=== PATIENT | male | born 1950 | race Hispanic/Latino ===

== ENCOUNTER → 2019-04-14 | Day surgery (SDC) | payer MEDICARE ==
[~2019-04-14] MED LIST: AMIODARONE HCL200 MG PO; AMLODIPINE BESYL5 MG PO; ASPIR 8181 MG PO; ATORVASTATIN CA20 MG PO; FENTANYL CITRATE/PF 100MCG/2 ML INJ ONE; HYDRALAZINE HCL25 MG PO; HYDROCHLOROTHIA25 MG PO; LISINOPRIL10 MG PO; METFORMIN HCL500 M2 PO; METOPROLOL SUCC50 MG PO; MIDAZOLAM HCL 2 MG/2 ML VIAL ONE; OR PHACO EYE KIT ONE; PLAVIX75 MG PO; PREOP PHACO EYE KIT ONE
--- OUTSIDE RECORDS SUMMARY | 2019-04-14 10:59 | XMS REPORT ---
[facility] Address Unknown Phone Unavailable Care Team Providers [employer] Business [employer] Analyst Name Role Phone Unavailable Unavailable Problems This patient has no known problems. Allergies, Adverse Reactions, Alerts This patient has no known allergies or adverse reactions. Medications This patient has no known medications. Encounters Start Date/Time End Date/Time Encounter Type Admission Type Attending Clinicians [facility] [place] Facility Care Department Encounter ID 2018-06-16 19:11:00 2018-06-16 19:11:00 Outpatient [id number] 2016-11-09 09:52:27 2016-11-09 09:52:27 Outpatient [facility] [id number] 2016-09-21 14:43:08 2016-09-21 14:43:08 Outpatient [facility] [id number] 2016-07-31 13:36:32 2016-07-31 13:36:32 Outpatient [facility] [id number] Results Test Description Test Time Test Comments Text Results Atomic Results Result Comments US Lower Ext Venous Duplex Bilateral 2017-11-15 22:41:59 Patient: JIMMIE ORLANDO Date/Time11/15/2017 22:35 CDTReason for ExamExtremity painReportExam: Venous duplex bilateral lower extremity ultrasoundLocation: [id number]: Extremity painComparison: None.DISCUSSION: James-scale, color Doppler, and spectral waveform ultrasound analysis of the bilateral lower extremities was performed.Right lower extremity: The common femoral vein, proximal, mid and distal superficial femoral vein, and popliteal vein are compressible and show normal response to augmentation. The major veins at the calf show normal flow.Left lower extremity: The common femoral vein, proximal, mid and distal superficial femoral vein, and popliteal vein are compressible and show normal response to augmentation. The major veins at the calf show normal flow.IMPRESSION: No evidence for deep venous thrombosis in the bilateral lower extremities. Final Dictated by: MD De La Rosa Alfred EDictated DT/TM: 11/15/2017 10:41 pmSigned by: MD De La Rosa Alfred ESigned (Electronic Signature): 11/15/2017 10:41 pm XR Chest 2 Views 2017-11-15 17:51:52 Patient: JIMMIE ORLANDO Date/Time11/15/2017 17:30 CDTReason for ExamCHF (Congestive Heart Failure), knownReportEXAM: Chest x-ray, 2 viewsLOCATION: [id number]: Chest CT from earlier today, chest radiograph 11/13/2017INDICATION: CHF (Congestive Heart Failure), knownDISCUSSION:AP and lateral chest radiographs were submitted for interpretation.There is central pulmonary vascular congestion with mild bibasilar opacity.The posterior costophrenic angles are blunted.The lungs are otherwise grossly clear.No pneumothorax is seen.The cardiac silhouette is enlarged, but stable.No acute osseous abnormalities are identified.IMPRESSION:1. Central pulmonary vascular congestion with mild bibasilar opacity.2. Small bilateral pleural effusions.3. Stable, enlarged cardiac silhouette. Final Dictated by: MD De La Rosa Alfred EDictated DT/TM: 11/15/2017 5:49 pmSigned by: MD De La Rosa Alfred ESigned (Electronic Signature): 11/15/2017 5:[address] Angio Chest 2017-11-15 17:49:37 Patient: JIMMIE ORLANDO Date/Time11/15/2017 17:25 CDTReason for ExamDyspneaReportCT Angio ChestLOCATION CODE: [id number]: DyspneaCOMPARISON: Chest radiograph 11/13/2017TECHNIQUE: CTA of the chest was performed with intravenous contrast. PE protocol was performed. Coronal, sagittal, and oblique reformatted images were created. One or more of the following dose reduction techniques were used: Automated exposure control, adjustment of the mA and/or kV according to patient size, and/or utilization of iterative reconstruction technique.DISCUSSION:Lungs and airways:The central airways are clear.Bilateral dependent atelectasis and/or scarring is present.There are associated small bilateral pleural effusions.An approximately 1.3 cm groundglass nodule is seen at the left lung apex.A 3 mm noncalcified nodule is seen in the left lower lobe.A few small calcified granulomas are seen in the right lung.The pulmonary arteries are well opacified. There are no pulmonary artery filling defects to suggest pulmonary embolism.Heart and mediastinum:The heart is mildly enlarged.Mild mediastinal lipomatosis is present.No pericardial effusion is seen.Calcified coronary artery and aortic atherosclerosis is seen.No enlarged mediastinal or hilar lymphadenopathy is seen.A small calcified subcarinal lymph node is compatible with remote granulomatous disease.Upper abdomen: Mild perinephric fat stranding can be normal for age. Mildly hypodense liver may suggest fatty infiltrationBones/soft tissues: There are mild to moderate degenerative changes throughout the spine.IMPRESSION:1. There are no pulmonary artery filling defects to suggest pulmonary embolism.2. Bilateral dependent atelectasis and/or scarring with small bilateral pleural effusions.3. Mild car diomegaly with mediastinal lipomatosis.4. Indeterminate 1.3 cm groundglass nodule in the left lung apex. There is also a 3 mm noncalcified nodule in the left lower lobe. Follow-up chest CT in 6-12 months is recommended.5. Otherwise, no acute abnormalities in the chest Final Dictated by: MD De La Rosa Alfred EDictated DT/TM: 11/15/2017 5:40 pmSigned by: MD De La Rosa Alfred ESigned (Electronic Signature): 11/15/2017 5:49 pm XR Chest 1 View Frontal 2017-11-13 15:24:03 Patient: JIMMIE PEREZ Date/Time11/13/2017 14:35 CDTReason for ExamChest painReportCHEST 1 VIEWCLINICAL INFORMATION: Chest painCOMPARISON: None availableFINDINGS:The lungs are well-expanded and clear. No airspace consolidation is seen. No pneumothorax or pleural effusion is present. The cardiac silhouette is normal in size. The bones are grossly intact.IMPRESSION:No acute cardiopulmonary finding.LOCATION: R16 Final Dictated by: MD Joshua, Jose FDictleanne DT/TM: 11/13/2017 3:21 pmSigned by: MD Joshua, Jose FSigned (Electronic Signature): 11/13/2017 3:24 pm
[2019-04-14 14:00] VITALS: BP 131/66
== END | disposition home or self-care (01) ==
LOC: OR 10:52
PROVIDERS: ATTEND Ophthalmology
DX: H25.12 Age-related nuclear cataract, left eye (principal); I25.10 Atherosclerotic heart disease of native coronary artery without angina pectoris; I25.2 Old myocardial infarction; I10 Essential (primary) hypertension; G47.33 Obstructive sleep apnea (adult) (pediatric); E11.9 Type 2 diabetes mellitus without complications; K21.9 Gastro-esophageal reflux disease without esophagitis; E78.5 Hyperlipidemia, unspecified; Z01.810 Encounter for preprocedural cardiovascular examination; Z79.02 Long term (current) use of antithrombotics/antiplatelets; Z79.82 Long term (current) use of aspirin; Z79.84 Long term (current) use of oral hypoglycemic drugs; Z95.810 Presence of automatic (implantable) cardiac defibrillator; Z95.5 Presence of coronary angioplasty implant and graft
CPT/HCPCS: 36415; 66984; 82948; 93005; J2250; J3010

== ENCOUNTER → 2019-04-28 | Day surgery (SDC) | payer MEDICARE ==
[2019-04-23 13:18] LABS: BASOPHILS # (AUTO) 0.1 (0.0-0.1); EOSINOPHILS # (AUTO) 0.2 (0.0-0.4); EOSINOPHILS % 2.3 % (0.0-6.0); HEMATOCRIT 37.8 % (38.2-49.6); LYMPHOCYTES # (AUTO) 2.4 (1.0-3.2); LYMPHOCYTES % 28.8 % (18.0-39.1); MEAN CORPUSCULAR HEMOGLOBIN 33.2 pg (28-32); MEAN CORPUSCULAR HGB CONC 34.4 g/dL (31-35); MEAN CORPUSCULAR VOLUME 96.7 fL (81-99); MONOCYTES # (AUTO) 0.9 (0.2-0.8); MONOCYTES % 11.3 % (4.4-11.3); NEUTROPHILS # (AUTO) 4.7 (2.1-6.9); NEUTROPHILS % 56.4 % (38.7-80.0); PLATELET COUNT 245 x10e3/uL (140-360); RED BLOOD COUNT 3.91 x10e6/uL (4.3-5.7); RED CELL DISTRIBUTION WIDTH 12.8 % (11.7-14.4)
[~2019-04-28] MED LIST changes: +BALANCED SALT SOLN (OPTH) 15 ML BTL IO ONE
[2019-04-28 13:00] VITALS: BP 124/58
== END | disposition home or self-care (01) ==
LOC: OR 10:17
PROVIDERS: ATTEND Ophthalmology
DX: H25.11 Age-related nuclear cataract, right eye (principal); Z01.812 Encounter for preprocedural laboratory examination; E11.9 Type 2 diabetes mellitus without complications; Z79.84 Long term (current) use of oral hypoglycemic drugs; I11.9 Hypertensive heart disease without heart failure; D64.9 Anemia, unspecified; I25.10 Atherosclerotic heart disease of native coronary artery without angina pectoris; K21.9 Gastro-esophageal reflux disease without esophagitis; E55.9 Vitamin D deficiency, unspecified; Z95.810 Presence of automatic (implantable) cardiac defibrillator; G47.33 Obstructive sleep apnea (adult) (pediatric)
CPT/HCPCS: 36415 ×2; 66984; 82948; 85025; J2250; J3010

== ENCOUNTER → 2019-08-20 | Day surgery (SDC) | payer MEDICARE ==
[2019-08-17 11:51] LABS: BASOPHILS # (AUTO) 0.1 (0.0-0.1); EOSINOPHILS # (AUTO) 0.2 (0.0-0.4); EOSINOPHILS % 2.6 % (0.0-6.0); HEMATOCRIT 36.9 % (38.2-49.6); HEMOGLOBIN 12.6 g/dL (14.0-18.0); LYMPHOCYTES # (AUTO) 3.4 (1.0-3.2); MEAN CORPUSCULAR HEMOGLOBIN 32.6 pg (28-32); MEAN CORPUSCULAR HGB CONC 34.1 g/dL (31-35); MEAN CORPUSCULAR VOLUME 95.6 fL (81-99); MONOCYTES % 11.5 % (4.4-11.3); NEUTROPHILS # (AUTO) 4.1 (2.1-6.9); PLATELET COUNT 219 x10e3/uL (140-360); RED BLOOD COUNT 3.86 x10e6/uL (4.3-5.7); RED CELL DISTRIBUTION WIDTH 12.4 % (11.7-14.4)
[~2019-08-20] MED LIST changes: +ASPIRIN81 MG PO; +ATORVASTATIN CA10 MG PO; -BALANCED SALT SOLN (OPTH) 15 ML BTL IO ONE; +CLOPIDOGREL75 MG PO; +HYDROCHLOROTHIA50 MG PO; +LIDOCAINE HCL 2% LOCAL INJ 5 ML SDV VIAL INJ ONE; +METFORMIN HCL500 MG PO; -OR PHACO EYE KIT ONE; -PREOP PHACO EYE KIT ONE; +PROPOFOL IV EMULSION 10 MG/ML 20 ML VIAL ONE
[2019-08-20 09:05] VITALS: BP 145/82
== END | disposition home or self-care (01) ==
LOC: OR 06:00
PROVIDERS: ATTEND Internal Medicine Gastroenterology
DX: K29.70 Gastritis, unspecified, without bleeding (principal); K63.5 Polyp of colon; K62.1 Rectal polyp; K21.9 Gastro-esophageal reflux disease without esophagitis; K44.9 Diaphragmatic hernia without obstruction or gangrene; K57.30 Diverticulosis of large intestine without perforation or abscess without bleeding; K64.8 Other hemorrhoids; C61 Malignant neoplasm of prostate; Z71.3 Dietary counseling and surveillance; E66.9 Obesity, unspecified; I10 Essential (primary) hypertension; E11.9 Type 2 diabetes mellitus without complications; G47.33 Obstructive sleep apnea (adult) (pediatric); K28.9 Gastrojejunal ulcer, unspecified as acute or chronic, without hemorrhage or perforation; I25.2 Old myocardial infarction; Z79.02 Long term (current) use of antithrombotics/antiplatelets; Z79.82 Long term (current) use of aspirin; Z79.84 Long term (current) use of oral hypoglycemic drugs; Z68.33 Body mass index [BMI] 33.0-33.9, adult; Z87.891 Personal history of nicotine dependence; Z01.810 Encounter for preprocedural cardiovascular examination; Z01.812 Encounter for preprocedural laboratory examination; Z11.59 Encounter for screening for other viral diseases
CPT/HCPCS: 36415 ×2; 43239; 45385; 82948; 85025; 87635; 93005; J2001; J2250; J2704; J3010

== ENCOUNTER → 2020-08-24 | Outpatient (RCR) | payer MEDICARE ==
[~2020-08-24] MED LIST changes: -FENTANYL CITRATE/PF 100MCG/2 ML INJ ONE; -LIDOCAINE HCL 2% LOCAL INJ 5 ML SDV VIAL INJ ONE; -MIDAZOLAM HCL 2 MG/2 ML VIAL ONE; -PROPOFOL IV EMULSION 10 MG/ML 20 ML VIAL ONE
== END ==
LOC: PT 08-15 10:47
PROVIDERS: ATTEND Physician Assistant
DX: M47.26 Other spondylosis with radiculopathy, lumbar region (principal)

== ENCOUNTER 2020-09-23 14:00 | Outpatient (RCR) | payer MEDICARE | END 2020-09-24 | LOC: PT 14:00 | PROVIDERS: ATTEND Physician Assistant | DX: M47.26 Other spondylosis with radiculopathy, lumbar region (principal) | CPT/HCPCS: 97139 ==

== ENCOUNTER 2020-10-04 17:00 | Outpatient (RCR) | payer MEDICARE | END 2020-10-25 | LOC: PT 17:00 | PROVIDERS: ATTEND Physician Assistant | DX: M47.26 Other spondylosis with radiculopathy, lumbar region (principal) | CPT/HCPCS: 97139 ==